=== PATIENT | female | born 1955 | race Two or more races ===

== ENCOUNTER 2022-08-23 16:44 | Inpatient (IN) | payer OTHER ==
[~2022-08-23] VITALS: Ht 177.8 cm; Wt 131.7 kg
[2022-08-23] MEDS ORDERED: IPRATROPIUM BROM 0.5 MG/2.5ML INH SOL HHN ONE ×2 (17:15→22:30)
[2022-08-23] MEDS ORDERED: ALBUTEROL SULF 2.5 MG/0.5ML(0.5%) NEB SOLN HHN ONE ×2 (17:15→22:30)
[2022-08-23] MEDS ORDERED: methylPREDNISolone SOD SUCC 125 MG/2 ML VL IV ONE (17:15)
[2022-08-23 19:07] LABS: Basophils # (auto) 0.1 10 ^3/uL (0-0.2); Eosinophils # (auto) 0.4 10 ^3/uL (0-0.8); Monocytes # (auto) 0.9 10 ^3/uL (0-1.3)
[2022-08-23 19:09] LABS: Basophils % (auto) 0.6 % (0.0-2.0); Eosinophils % (auto) 2.6 % (0.0-7.0); Hematocrit 35.3 % (36.0-46.0); Hemoglobin 11.2 g/dL (12.2-16.2); Lymphocytes # (auto) 2.7 10 ^3/uL (0.4-5.4); Lymphocytes % (auto) 16.6 % (10.0-50.0); Mean Corpuscular Hemoglobin 24.8 pg (28.0-32.0); Mean Corpuscular Hgb Conc. 31.7 g/dL (32.0-36.0); Mean Corpuscular Volume 78.4 fL (80.0-100.0); Monocytes % (auto) 5.4 % (0.0-12.0); Neutrophils # (auto) 12.3 10 ^3/uL (1.6-8.6); Neutrophils % (auto) 74.8 % (37.0-80.0); White Blood Cell 16.4 10^3/uL (4.4-10.8)
[2022-08-23 19:18] LABS: Albumin 3.5 g/dL (3.4-5.0); Potassium 3.4 mmol/L (3.5-5.1)
[2022-08-23 19:19] LABS: Lactic Acid w/Reflex 2.7 mmol/L (0.4-2.0)
[2022-08-23 19:22] LABS: BUN/Creatinine Ratio 11.2; Bilirubin, Total 0.4 mg/dL (0.2-1.0); Total Protein 7.2 g/dL (6.4-8.2)
[2022-08-23] MEDS ORDERED: cefTRIAXone 1GM/50ML D5W 50 ML IV ONE (21:45)
[2022-08-23] MEDS ORDERED: MORPHINE SULFATE INJ 2 MG/ml SYRG IV PRN (22:15)
[2022-08-23] MEDS ORDERED: ONDANSETRON HCL 4 MG/2 ML VIAL IV PRN (22:15)
[2022-08-23] MEDS ORDERED: NITROGLYCERIN 0.4 MG SL TAB SL PRN (22:15)
[2022-08-23] MEDS ORDERED: TEMAZEPAM 15 MG CAP PO PRN (22:15)
[2022-08-23 22:18] VITALS: BP 147/82
[2022-08-23 22:22] LABS: Urine WBC None Seen /hpf (0 - 5)
[2022-08-23 22:51] LABS: Urine Bacteria NONE SEEN /hpf (None Seen)
[2022-08-23 22:53] LABS: Urine Blood Normal /uL (Negative)
[2022-08-24] MEDS: ACETAMINOPHEN 325 MG TAB PO PRN ×3 (00:48→18:20)
[2022-08-24 05:05] LABS: Basophils # (auto) 0 10 ^3/uL (0-0.2); Basophils % (auto) 0.4 % (0.0-2.0); Eosinophils # (auto) 0 10 ^3/uL (0-0.8); Hematocrit 34.9 % (36.0-46.0); Lymphocytes # (auto) 0.5 10 ^3/uL (0.4-5.4); Lymphocytes % (auto) 4.3 % (10.0-50.0); Mean Corpuscular Hemoglobin 24.5 pg (28.0-32.0); Mean Corpuscular Hgb Conc. 31.6 g/dL (32.0-36.0); Mean Corpuscular Volume 77.4 fL (80.0-100.0); Monocytes # (auto) 0.1 10 ^3/uL (0-1.3); Monocytes % (auto) 1.2 % (0.0-12.0); Neutrophils # (auto) 11.7 10 ^3/uL (1.6-8.6); Neutrophils % (auto) 94.1 % (37.0-80.0); Red Blood Cells 4.51 10^6/uL (4.0-5.20); Red Cell Distribution Width 16.8 % (11.8-14.3); White Blood Cell 12.4 10^3/uL (4.4-10.8)
[2022-08-24 05:21] LABS: BUN/Creatinine Ratio 11.5; Calcium 9.3 mg/dL (8.5-10.1); Potassium 3.7 mmol/L (3.5-5.1)
[2022-08-24] MEDS: ALBUTEROL SULF 2.5 MG/0.5ML(0.5%) NEB SOLN NEB PRN ×2 (07:27→18:11)
[2022-08-24] MEDS: IPRATROPIUM BROM 0.5 MG/2.5ML INH SOL NEB PRN ×2 (07:27→18:11)
[2022-08-24] MEDS: HCTZ 25 MG TAB PO SCH (09:22)
[2022-08-24] MEDS ORDERED: ENOXAPARIN SOD 40 MG/0.4 ML SYRINGE SC SCH (10:00)
[2022-08-24] MEDS ORDERED: PANTOPRAZOLE 40 MG TAB PO SCH (10:00)
[2022-08-24] MEDS ORDERED: SODIUM CHLORIDE 0.9% 1,000 ML IV SCH (16:45)
[2022-08-24] MEDS: methylPREDNISolone SOD SUCC 40 MG/ML VL IV SCH ×2 (16:54→23:01)
[2022-08-24] MEDS: BUDESONIDE (INHALATION) 0.5 MG/2 ML NEB NEB SCH (18:11)
[2022-08-24] MEDS ORDERED: PNEUMOCOCCAL VACC POLYS 25 MCG/0.5 ML VIAL IM ONE (18:45)
[2022-08-24] MEDS ORDERED: ACET-1156 PO (18:46)
[2022-08-24] MEDS ORDERED: HYDR12.56 PO (18:46)
[2022-08-24] MEDS ORDERED: CHOL20007 PO (18:46)
[2022-08-24] MEDS ORDERED: TIZA4CAP7 PO (18:46)
[2022-08-24] MEDS ORDERED: MULT-1018 PO (18:46)
[2022-08-24] MEDS ORDERED: ASCO500T11 PO (18:46)
[2022-08-24] MEDS ORDERED: IBUP800T27 PO (18:46)
[2022-08-24 20:00] VITALS: BP 110/68
[2022-08-24 22:00] VITALS: BP 110/68
[2022-08-24] MEDS ORDERED: cefTRIAXone 1GM/50ML D5W 50 ML IV SCH (22:00)
[2022-08-25] MEDS: IPRATROPIUM BROM 0.5 MG/2.5ML INH SOL NEB PRN ×2 (00:03→09:17)
[2022-08-25] MEDS: ALBUTEROL SULF 2.5 MG/0.5ML(0.5%) NEB SOLN NEB PRN ×2 (00:03→09:17)
[2022-08-25 05:00] VITALS: BP 151/79
[2022-08-25 07:11] LABS: Albumin 3.1 g/dL (3.4-5.0); Calcium 9.6 mg/dL (8.5-10.1); Potassium 4.8 mmol/L (3.5-5.1)
[2022-08-25 07:17] LABS: BUN/Creatinine Ratio 16.8; Bilirubin, Total 0.3 mg/dL (0.2-1.0); Total Protein 6.8 g/dL (6.4-8.2)
[2022-08-25 08:00] VITALS: BP 149/92
[2022-08-25 09:00] VITALS: BP 149/92
[2022-08-25] MEDS: BUDESONIDE (INHALATION) 0.5 MG/2 ML NEB NEB SCH (09:17)
[2022-08-25] MEDS: HCTZ 25 MG TAB PO SCH (09:39)
[2022-08-25] MEDS: methylPREDNISolone SOD SUCC 40 MG/ML VL IV SCH (09:39)
[2022-08-25] MEDS ORDERED: PNEUMOCOCCAL VACC POLYS 25 MCG/0.5 ML VIAL IM ONE (11:30)
[2022-08-25] MEDS ORDERED: PRED20TA2 PO (11:39)
[2022-08-25] MEDS ORDERED: AZIT1POW12 PO (11:39)
[2022-08-25 13:00] VITALS: BP 152/93
[2022-08-25 13:08] VITALS: BP 149/92
[2022-08-26] MEDS ORDERED: AZITTAB PO (09:46)
== END 2022-08-25 13:53 | disposition home or self-care (01) | DRG 189 ==
LOC: EDBD 16:44 → ER 16:44 → TELE 22:10 → WEST WING 08-24 17:33
PROVIDERS: ADMIT Nurse Practitioner; ATTEND Nurse Practitioner Acute Care
DX: J96.21 Acute and chronic respiratory failure with hypoxia (principal); J44.1 Chronic obstructive pulmonary disease with (acute) exacerbation; J44.0 Chronic obstructive pulmonary disease with (acute) lower respiratory infection; Z68.41 Body mass index [BMI] 40.0-44.9, adult; J45.901 Unspecified asthma with (acute) exacerbation; E66.01 Morbid (severe) obesity due to excess calories; Z20.822 Contact with and (suspected) exposure to COVID-19; I10 Essential (primary) hypertension; Z90.710 Acquired absence of both cervix and uterus; Z83.3 Family history of diabetes mellitus; Z80.9 Family history of malignant neoplasm, unspecified; Z90.49 Acquired absence of other specified parts of digestive tract
CPT/HCPCS: 36415; 71045; 80048; 80053; 81001; 83605; 83735; 84484; 85025; 85379; 87040; 87426; 87804; 94640; 94644; 96361; 96365; 96372; 96375; G0378; J0696